=== PATIENT | female | born 1995 | race Caucasian/White ===

== ENCOUNTER 2022-09-21 12:57 | Outpatient (CLI) | payer SELFPAY ==
--- NOTE | 2022-09-21 13:00 | CRLHL7_ITS ---
For Patients: As a result of the Century Cures Act, medical imaging exams and procedure reports are released immediately into your electronic medical record. You may view this report before your referring provider. If you have questions, please contact your health care provider. INDICATION: First trimester scan, establish dates. COMPARISON: None. TECHNIQUE: Real-time wood-scale imaging of the pelvis was performed. FINDINGS: Sonographic imaging demonstrates a single living intrauterine gestation. The embryo demonstrates a regular cardiac rate measuring 146 beats per minute. Gestational age by ultrasound 16 weeks 3 days, due date 03/05/2023. There are no gross abnormalities noted within the embryo at this early state of development. The gestational sac has a normal appearance. There is no evidence of a perigestational hemorrhage. The amount of fluid within the sac appears appropriate for gestational age. The cervix is closed. The myometrium appears normal. The ovaries are of normal size. There are no suspicious fluid collections noted in the cul-de-sac. IMPRESSION: Single living intrauterine with sonographic gestational age 16 weeks 3 days and sonographic due date 03/05/2023. Dictated by James Sanderson MD @ 09/23/2022 12:17:25 PM (Electronically Signed)
== END 2022-09-21 12:58 | disposition home or self-care (01) ==
LOC: US 12:59
PROVIDERS: Visit Provider Physician Assistant
DX: Z34.92 Encounter for supervision of normal pregnancy, unspecified, second trimester (principal); Z3A.16 16 weeks gestation of pregnancy
CPT/HCPCS: 76801; 86592; 86703; 86762; 86787; 86803; 86850; 86900; 86901; 87086; 87340

== ENCOUNTER 2022-12-18 14:15 | Outpatient (CLI) | payer SELFPAY | END 2022-12-18 14:16 | disposition home or self-care (01) | LOC: NFLDREF 12-21 11:17 | PROVIDERS: Visit Provider Obstetrics & Gynecology | DX: Z34.93 Encounter for supervision of normal pregnancy, unspecified, third trimester (principal); Z3A.29 29 weeks gestation of pregnancy | CPT/HCPCS: 86592 ==

== ENCOUNTER 2023-02-14 11:45 | Outpatient (CLI) | payer SELFPAY | END 2023-02-14 11:46 | disposition home or self-care (01) | LOC: NFLDREF 02-16 12:29 | PROVIDERS: Visit Provider Obstetrics & Gynecology | DX: Z34.93 Encounter for supervision of normal pregnancy, unspecified, third trimester (principal); Z3A.37 37 weeks gestation of pregnancy | CPT/HCPCS: 87081; 87653 ==

== ENCOUNTER 2023-02-27 05:20 | Inpatient (IN) | payer SELFPAY ==
[2023-02-27] VITALS (28 sets, daily range): BP systolic 88–110; BP diastolic 46–69; PULSE 65–96; RESP 16–18; TEMP 36.3–36.8; O2SAT 96–100; BMI 32.8
[2023-02-27] MEDS: LACTATED RINGERS 1000 ML 1,000 ML 125 ML IV (05:49)
[2023-02-27 06:42] LABS: Basophils Absolute Auto 0.02 K/uL (0.00-0.30); Basophils Percent Auto 0.2 % (0.0-3.0); Eosinophils Absolute Auto 0.03 K/uL (0.00-0.50); Eosinophils Percent Auto 0.3 % (0.0-7.0); Hematocrit 34.5 % (33.0-51.0); Hemoglobin* 11.8 gm/dL (12.0-16.0); Immature Granulocytes Abs Auto 0.04 K/uL (0.00-0.30); Immature Granulocytes Pct Auto 0.5 %; Lymphocytes Percent Auto 26.1 % (20-44); Mean Corpuscular HGB Conc 34 gm/dL (32-36); Mean Corpuscular Hemoglobin 32 pg (26-34); Mean Corpuscular Volume 94 fL (80-100); Monocytes Percent Auto 6.5 % (0.0-11.0); Neutrophils Absolute Auto 5.84 K/uL (1.7-7.0); Neutrophils Percent Auto 66.4 % (42.0-72.0); Platelet Count* 170 K/uL (140-440); Red Blood Count 3.67 m/uL (4.00-5.20)
[2023-02-27 06:49] LABS: Slide Review Reflex No
--- NOTE | 2023-02-27 07:35 | P.LDBA_ITS ---
Subjective History of Present Illness Time Seen by Provider: 07:10 Date Seen: 02/27/23 Narrative: Patient is being admitted to Labor and Delivery for repeat section. She is a 27 year old at weeks gestation. Her full history and physical was dictated by Dr. RUIZ on 02/14/23. Please see this for details. Specific Issues/Plans H&P by SARA on 02/14/23 Repeat Delivery scheduled for 02/27/23 at 39 1/7 weeks. 1. Status post C-sections x 2 Indication for 1st: Secondary arrest of descent. 2nd, Elected for repeat C- section 2. Short interval last 06/15/2021 3. History of depression and anxiety 4. Declined Pap at 1st OB, wants to wait until . Declined gonorrhea and chlamydia screening OB - Problem Based A/P Additional Plan (1) Previous delivery affecting : Problem details: 2 previous cesareans Status: Acute Plan Repeat section today. Patient with significant anxiety associated to surgery. She did take one dose of Vistaril this morning. Otherwise doing well, no new updates. Proceed with delivery. OB Result Labs Labs: Hemoglobin: 11.8 mg/dL OB Exam Physical Exam Vital signs: Temp Pulse Resp BP 98.2 F 96 18 110/65 02/27/23 05:48 02/27/23 05:48 02/27/23 05:48 02/27/23 05:48 Detailed Labor and Delivery Exam Patient Gravid: Yes Contraction Frequency: Irregular Tachysystole: No Contraction intensity: Mild Fetus (Single) Heart Rate Baseline: 140 Monitor Accelerations: Present Monitor Decelerations: None Inspector Aligning Variability: Moderate (6-25)
[2023-02-27] MEDS: CEFAZOLIN 2 GM INJ IVP (08:10)
[2023-02-27] MEDS: LACTATED RINGERS 1000 ML 1,000 ML 100 ML IV ×3 (08:31→16:07)
--- NOTE | 2023-02-27 09:10 | P.OBPRC_ITS ---
Procedure Time Seen by Provider: 08:00 Date of procedure: 02/27/23 Pre-op diagnosis: Previous delivery x2. Post-op diagnosis: same Procedure Done: Global Will [facility] bill your pro fee for this procedure?: Yes Blood Loss Measurement Type: QBL (220mL) Bakri Used: No Surgeon: Neva Waller MD Director Of District Office: Cj Dixon Anesthesia type: Spinal Findings: FINDINGS: Live-born male , vertex presentation, tight nuchal cord clamped and cut before delivery of the rest of the body. Apgars 8 and 9 at 1 and 5 minutes respectively. weight 8 lb 0 oz. Procedure Description: Procedure name: Repeat low transverse section. PROCEDURE: After obtaining informed consent, the patient was taken to the operating room where spinal anesthesia was obtained and found to be adequate. She was prepared and draped in the normal sterile fashion in the dorsal supine position with a leftward tilt. A Pfannenstiel skin incision was made with a scalpel along the line of the patient's previous Pfannenstiel scar. This incision was carried down to the underlying layer of fascia with the scalpel and Bovie. Moderate amount of scar tissue between subcutaneous fat layer and fascia. The fascia was incised in the midline and the incision extended laterally. The superior and inferior aspects of the fascial incision were grasped with Everardo clamps, elevated and the underlying rectus muscles dissected off sharply and with electrocautery. The rectus muscles were then in the midline. The Ananda O retractor was then placed into the incision. The lower uterine segment was then incised in a transverse fashion with the scalpel. Upon entry into the uterus, clear amniotic fluid was noted. The uterine incision was extended cephalo caudally with blunt finger fractionation. The infant's head was delivered atraumatically, nuchal cord identified, attempted to be reduced but tight and this was clamped and cut, followed by the delivery of the remainder of the 's body. The nose and mouth were suctioned with the bulb suction. The cord was doubly clamped and cut, after 30 seconds of delayed cord clamping and the infant was handed off the field for evaluation. The placenta was delivered spontaneously with umbilical cord traction and fundal massage. The uterus was cleared of all clots and debris. The uterine incision was reapproximated in a running locking fashion with a 0 Vicryl suture. A 2nd layer of the same suture was used to imbricate in horizontal fashion. Hemostasis secured. The gutters were inspected and cleared of blood clots. All instruments and retractors were removed. The anterior peritoneum was reapproximated in a running fashion with a 3-0 Vicryl suture. The subfascial tissues were carefully inspected and hemostasis assured. The fascia was reapproximated in a running fashion with a looped 0 Vicryl suture. The subcutaneous tissues were copiously irrigated. Hemostasis was assured. The subcutaneous fat layer was reapproximated with interrupted sutures of 3-0 Vicryl. The skin was closed in a subcuticular fashion with 4-0 Monocryl. LiquiBand and dressing were applied. The patient tolerated the procedure well. Sponge, lap, needle, and instrument counts were reported as correct x2. The patient was taken to the recovery room, awake, and in stable condition. She did receive 2 grams of IV Ancef preoperatively. Complications: None Condition: stable Disposition: floor OB Delivery Proc Additional Procedures Tubal Ligation at the time of : No Other: No
--- NOTE | 2023-02-27 09:35 | W.ANESCHARGE ---
Anesthesia Charges Start Date/Time Anesthesia Start Date: 02/27/23 Anesthesia Start Time: 08:00 Stop Date/Time Anesthesia Stop Date: 02/27/23 Anesthesia Stop Time: 09:28
--- NOTE | 2023-02-27 11:32 | P.NB_ITS ---
Nerve Block Nerve Block Time Seen by Provider: : Date Seen: 02/27/23 Type of block requested by surgeon for post-operative analgesia: TAP Side: bilateral Time out performed: Yes Verification of patient name: Yes Verification of date of : Yes Site marking: site marked Name of person performing procedure: Srikanth Continuous monitoring Was continuous monitoring of O2 sat, B/P, insurance processor, recorded every 15 minutes?: Yes Procedure Checklist: sterile prep, needles and gloves Ultrasound guided. Images saved: Yes Medications given in 5ml increments after negative aspiration: Marcaine %: 0.25 mL: 30 Needle gauge: 20 and Exparel mL: 10 Patient tolerated procedure well: Yes Additional comments: Needle noted adjacent to nerve Block Charges Block Charge (with Pro Fee): TAP Bilateral Use of Ultrasound Machine for Block: Yes- US Guidance/pain block
--- NOTE | 2023-02-27 11:32 | W.ANESCHARGE ---
Anesthesia Charges Start Date/Time Anesthesia Start Date: 02/27/23 Anesthesia Start Time: 08:00 Stop Date/Time Anesthesia Stop Date: 02/27/23 Anesthesia Stop Time: 09:28
[2023-02-27] MEDS: KETOROLAC 30 MG/ML inj IVP ×2 (15:08→21:07)
[2023-02-27] MEDS: ACETAMINOPHEN 500 MG TABLET 1000 MG PO (17:39)
[2023-02-27] MEDS: DOCUSATE SODIUM 100 MG CAPSULE PO (17:39)
[2023-02-28] VITALS (8 sets, daily range): BP systolic 89–100; BP diastolic 53–67; PULSE 61–82; RESP 14–16; TEMP 36.3–36.8; O2SAT 96–97
[2023-02-28] MEDS: LANOLIN CREAM 1 APPLIC TOPICAL (01:08)
[2023-02-28] MEDS: ACETAMINOPHEN 500 MG TABLET 1000 MG PO ×2 (01:08→08:01)
[2023-02-28] MEDS: KETOROLAC 30 MG/ML inj IVP ×2 (03:08→09:29)
[2023-02-28 06:28] LABS: Hemoglobin* 10.6 gm/dL (12.0-16.0)
--- NOTE | 2023-02-28 07:22 | P.DS_ITS ---
DS: Providers Provider Date Seen: 02/28/23 Date of admission: 02/27/23 05:20 Primary care physician: Not a Local Provider Admitting Clinician: Zulay Waller MD Attending Physician on discharge: Liliana Gonzalez CNM with Duane Evans CNM Date of Discharge: 02/28/23 DS: Diagnosis Discharge Diagnosis (1) care and examination immediately after delivery: Status: Acute (2) Lactating mother: Status: Acute Exam Narrative: Exam Narrative: GENERAL APPEARANCE:? normal affect, alert, no distress MOOD:? appropriate CHEST:? clear to auscultation HEART:? regular rate and rhythm ABDOMEN:? soft, non-tender the uterine fundus is firm At Umbilicus, Midline and is appropriate for the stage of recovery.. EXTREMITIES:? normal and trace edema Incision: Dressing clean dry and intact, due to be removed today. Const: Vital Signs, click to edit/add: Vital Signs - 24 hr 02/27/23 09:30 02/27/23 09:35 02/27/23 09:40 Temperature 97.5 F L Pulse Rate 81 76 80 Pulse Rate [Pulse Oximeter] Respiratory Rate 16 16 16 Blood Pressure 99/59 L 100/56 L 96/55 L Blood Pressure [Le ft Arm] Pulse Oximetry 98 98 98 [facility] 02/[facility] 09:45 02/27/23 09:50 02/27/23 09:55 Temperature 98.3 F Pulse Rate 81 80 82 Pulse Rate [Pulse Oximeter] Respiratory Rate 16 16 16 Blood Pressure 98/53 L 96/57 L 99/63 Blood Pressure [Le ft Arm] Pulse Oximetry 98 98 98 [facility] 02/27/23 10:10 02/27/23 10:17 02/27/23 10:25 Temperature 97.4 F L Pulse Rate Pulse Rate [Pulse Oximeter] 74 78 Respiratory Rate 16 16 16 Blood Pressure Blood Pressure [Le ft Arm] 98/58 L 88/46 L Pulse Oximetry 97 97 [facility] 02/27/23 10:40 02/27/23 10:55 02/27/23 11:10 Temperature Pulse Rate Pulse Rate [Pulse Oximeter] 72 66 73 Respiratory Rate 16 16 18 Blood Pressure Blood Pressure [Le ft Arm] 99/63 102/66 104/62 Pulse Oximetry 98 96 98 [facility] 02/27/23 11:25 02/27/23 11:35 02/27/23 11:40 Temperature 97.3 F L Pulse Rate Pulse Rate [Pulse Oximeter] 75 80 Respiratory Rate 18 16 16 Blood Pressure Blood Pressure [Le ft Arm] 99/69 96/60 Pulse Oximetry 99 98 Oxygen Delivery Me thod 02/27/23 12:00 02/27/23 12:35 02/27/23 13:35 Temperature Pulse Rate Pulse Rate [Pulse Oximeter] 84 Respiratory Rate 16 16 16 Blood Pressure Blood Pressure [Le ft Arm] 95/53 L Pulse Oximetry 98 Oxygen Delivery Me thod 02/27/23 14:35 02/27/23 15:35 02/27/23 15:51 Temperature 97.9 F Pulse Rate Pulse Rate [Pulse Oximeter] 65 Respiratory Rate 16 16 16 Blood Pressure Blood Pressure [Le ft Arm] 92/54 L Pulse Oximetry 100 Oxygen Delivery Me thod Room Air 02/27/23 16:35 02/27/23 17:35 02/27/23 18:35 Temperature Pulse Rate Pulse Rate [Pulse Oximeter] Respiratory Rate 16 16 16 Blood Pressure Blood Pressure [Le ft Arm] Pulse Oximetry Oxygen Delivery Me thod 02/27/23 19:19 02/27/23 19:35 02/27/23 20:35 Temperature 97.3 F L Pulse Rate Pulse Rate [Pulse Oximeter] 80 Respiratory Rate 16 16 16 Blood Pressure Blood Pressure [Le ft Arm] 100/64 Pulse Oximetry 98 Oxygen Delivery Me thod Room Air 02/28/23 00:53 02/28/23 00:57 02/28/23 01:35 Temperature 97.7 F Pulse Rate Pulse Rate [Pulse Oximeter] 69 Respiratory Rate 16 16 16 Blood Pressure Blood Pressure [Le ft Arm] 89/53 L Pulse Oximetry 97 Oxygen Delivery Me thod Room Air 02/28/23 05:09 02/28/23 05:29 Temperature 98.2 F Pulse Rate Pulse Rate [Pulse Oximeter] 61 Respiratory Rate 14 14 Blood Pressure Blood Pressure [Le ft Arm] 92/59 L Pulse Oximetry 96 Oxygen Delivery Me thod Room Air Documenting provider has reviewed patient's vital signs: yes OB - DS: Summary Hospital Course Hospital Course: Tessa is a 27 year old G 5 P 3 at 39.1 weeks gestation that was admitted to the Center on 02/27/23 for repeat section. She had an uncomplicated delivery. She delivered a viable male infant. She is breast feeding. the patient has done well. The patient feels well.? The pain is well controlled with current medications.? She has no new complaints.? Urinary output is adequate and she is voiding without difficulty.? Has a good appetite, is tolerating a general diet, is passing flatus, and has had a bowel movement.? Has small amount of rubra lochia.? She is ambulating well. She is and reports it is going well.?She is planning Depo for control. Peripartum Data Infant delivery method: Repeat Section Procedures: Procedures Operation Date: 02/27/23 07:15 Actual Procedure Side Surgeon p Repeat Section Not Applicable Zulay Waller MD Kenvir Infant Gender: Male Infant Discharge Plan: Home Status at Discharge Functional status at discharge: independent ambulation Overall status at discharge: patient is progressing back to baseline Time Spent with Patient Time attestation: Total time spent providing and/or coordinating discharge services: Time spent: Less than 30 minutes Discharge Plan Discharge Disposition: Home, Self-Care Date of Admission: 02/27/23 05:20 Attending Provider on Discharge: Liliana Gonzalez Primary Care Provider: Provider,Not a Local Condition: Stable Anticipated Discharge Date/Time: 02/28/23 12:00 Discharge Medications: New docusate sodium 100 mg Capsule 100 mg PO BID PRNQty: 100 0RF Rx Instructions: Take 1 cap 1-2 times a day as needed for constipation ibuprofen 600 mg Tablet 600 mg PO Q6H PRN (Reason: Pain) Qty: 60 0RF oxycodone 5 mg Tablet 5 - 10 mg PO Q4H PRN (Reason: Pain) Qty: 20 0RF Continued prenat.vits,barry,[id number] Tablet 1 tab PO QDAY Discontinued Unisom (doxylamine) 25 mg tablet 25 mg PO QHS PRN pyridoxine (vitamin B6) 25 mg tablet 25 mg PO QDAY hydroxyzine pamoate 25 mg capsule 25 mg PO QHS Qty: 5 0RF Discharge Orders: Discharge Order (Routine); Ordered 02/28/23 Ordered By: Duane Evans Patient Education: OB Over the Counter Medication Information, OB /Breast Feeding Additional Instructions: Discharge instructions were reviewed with the patient including signs and symptoms of infection and home going medications Lifting Restrictions: 20 pounds for 6 weeks No not submerge incision under water X 2 weeks? Nothing vaginally for 6 weeks: no tampons or intercourse Do not drive while taking narcotic pain medication(s) Off Work or School for 8 weeks 2-week visit: incision check, discuss infant feeding concerns, review control options and screen for anxiety/depression. 6-week visit for an annual exam. consultation services are available to all mothers and babies for the first year after delivery.? To make an appointment, please call [phone]. Activity Level: Activity as Tolerated Discharge Diet: Regular Follow Up Appointments: [facility] [Provider Group] Provider,Not a Local [Primary Care Provider] - Forms: FeedMagnet Info Instructions
[2023-02-28] MEDS: DOCUSATE SODIUM 100 MG CAPSULE PO (09:29)
== END 2023-02-28 13:25 | disposition home or self-care (01) | DRG 788 ==
PROVIDERS: Admitting Provider Obstetrics & Gynecology; Visit Provider Obstetrics & Gynecology
PROC: 10D00Z1 Extraction of Products of Conception, Low, Open Approach (ICD-10-PCS; CPT 59514; principal; 2023-02-27 07:15)
DX: O34.211 Maternal care for low transverse scar from previous cesarean delivery (principal); Z3A.39 39 weeks gestation of pregnancy; O99.344 Other mental disorders complicating childbirth; F41.9 Anxiety disorder, unspecified; F32.A Depression, unspecified; Z37.0 Single live birth; G89.18 Other acute postprocedural pain
CPT/HCPCS: 01961; 36415; 64488; 76942; 85018; 85025; 86850; 86900; 86901; A9270; C9290; J0665; J0690; J1885; J2274; J2371; J2405; J2590; J7120